=== PATIENT | male | born 1955 | race Caucasian/White ===

== ENCOUNTER 2017-05-26 07:10 | Outpatient (CLI) | payer BC | END 2017-05-26 07:11 | disposition home or self-care (01) | LOC: BICULT 07:10 | PROVIDERS: ATTEND Family Medicine | DX: G45.9 Transient cerebral ischemic attack, unspecified (principal); I65.21 Occlusion and stenosis of right carotid artery | CPT/HCPCS: 93880 ==

== ENCOUNTER 2019-08-09 11:52 | Outpatient (CLI) | payer BC ==
--- NOTE | 2019-08-09 13:03 | ULT ---
EXAM: Carotid Doppler PROVIDED CLINICAL HISTORY: Carotid artery disease COMPARISON: 06/25/2015 FINDINGS: Grayscale and color Doppler sonography with spectral analysis was performed of the extracranial carot id system bilaterally. Atherosclerotic plaque is seen within each carotid bulb/proximal ICA region, similar to prior. There is elevation of peak systolic velocity within the right internal carotid kati ry, measuring 145 cm/s, without elevation of the ICA/CCA ratio. There is no additional evidence for a hemodynamically significant internal carotid artery stenosis by peak systolic velocity or ratio cri teria. Antegrade flow is seen in the vertebral arteries. IMPRESSION: Nonspecific elevation of peak systolic velocity within the right internal carotid artery, which could reflect a moderate, 50-69% stenosis.
== END 2019-08-09 11:53 | disposition home or self-care (01) ==
LOC: BICULT 11:52
PROVIDERS: ATTEND Family Medicine
DX: I77.9 Disorder of arteries and arterioles, unspecified (principal); R93.1 Abnormal findings on diagnostic imaging of heart and coronary circulation
CPT/HCPCS: 93880

== ENCOUNTER 2020-06-28 23:07 | Inpatient (IN) | payer MEDICARE ==
[2020-06-29] MEDS ORDERED: Acetaminophen 325 MG TAB PO PRN (01:45)
[2020-06-29] MEDS ORDERED: Acetaminophen 650 MG Suppository PR PRN (01:45)
[2020-06-29] MEDS ORDERED: Nitroglycerin 0.4 MG TAB (25 Tab Bottle) SL PRN (01:55)
--- NOTE | 2020-06-29 02:08 | PDOC.HHP ---
Hospitalist HPI - History of Present Illness History of Present Illness: ADMISSION DATE: 06/29/2020 TIME OF ASSESSMENT: 0100 PRIMARY CARE PHYSICIAN: Dr. Do CHIEF COMPLAINT: Chest pain HPI: This is a 65-year-old gentleman who presents to the emergency department complaining of intermittent chest pain for the last 3 days. Not noted any association with activity and denies any associated shortness of breath. States the pain is in the left side of his chest and is nonradiating. He reports that the pain has been as severe as a 7 out of 10 but only lasts approximately 30 seconds at a time. He opted to come into the emergency department due to increasing frequency with the pain. He reports a chronic cough that is nonproductive. No recent fevers, chills or sweats. Denies any associated diaphoresis, palpitations, or shortness of breath. Denies any nausea or vomiting. No abdominal pain or cramping. No bowel changes or urinary symptoms. All other review systems are negative. ED COURSE: Initially seen at [facility]. EKG done in the emergency department showed T wave inversion involving the inferior leads. White cell count 9.7, hemoglobin 16.2, hematocrit 45, platelets 200, neutrophils 40.2%. D-dimer 0.46, repeat was 0.36. Sodium 140, potassium 4, BUN 24, creatinine 0.91, GFR 84, glucose 110, LFTs normal. Troponin negative x2. CK-MB 2.6 and CK normal. Chest x-ray: No acute changes. He was given nitroglycerin and 324 mg of aspirin. PAST MEDICAL HISTORY: 1. History of CVA 2. Peripheral vascular disease 3. Chronic tobacco use 4. Hypertension 5. BPH 6. Diabetes mellitus PAST SURGICAL HISTORY: 1. Stents placed to the right and left femoral arteries 2. Left femoral endarterectomy SOCIAL HISTORY: Patient smokes 1/2 to 3/4 pack of cigarettes a day. Denies daily alcohol consumption and states he is drinks 4 beers a week. Denies any illicit drug use. No history of alcohol withdrawal symptoms. FAMILY HISTORY: Mother was diagnosed with diabetes as well as his siblings. Siblings diagnosed with hypertension and heart disease. ALLERGIES: No known drug allergies CURRENT MEDICATIONS: 1. Aspirin 81 mg p.o. daily 2. Plavix 75 mg p.o. daily 3. Ramipril 10 mg p.o. twice daily VS: Temp 98.1, BP 164/81, HR 58, RR 18, O2 sat 97% on room air. - Exam General Appearance: NAD, awake alert Eye: PERRL, anicteric sclera ENT: normocephalic atraumatic, no oropharyngeal lesions Neck: supple, no lymphadenopathy Heart: RRR, no gallops, no rubs, normal peripheral pulses Respiratory: CTAB, no wheezes, no rales, no ronchi, normal chest expansion Gastrointestinal: soft, non-tender, non-distended, normal bowel sounds Extremities: no edema Skin: normal turgor, no lesions, no rashes Neurological: cranial nerve grossly intact, normal sensation to touch, no weakness Musculoskeletal: normal tone, normal strength, no muscle wasting Psychiatric: normal affect, normal behavior, A&O x 3 Hospitalist Results - Labs Lab results: D-Dimer 0.36 *mcg/mL (0.27-0.43) 06/28/20 23:56 Troponin I 0.012 ng/mL (< 0.028) 06/28/20 23:56 - Radiology Interpretation Chest x-ray Status: report reviewed by ut Hospitalist H&P A/P - Problem (1) Chest pain Code(s): R07.9 - CHEST PAIN, UNSPECIFIED Status: Acute (2) Diabetes Code(s): E11.9 - TYPE 2 DIABETES MELLITUS WITHOUT COMPLICATIONS Status: Chronic Qualifiers: Diabetes mellitus type: type 2 Diabetes mellitus complication status: with circulatory complication Diabetes mellitus complication detail: with peripheral angiopathy without gangrene Qualified Code(s): E11.51 - Type 2 diabetes mellitus with diabetic peripheral angiopathy without gangrene (3) Dyslipidemia Code(s): E78.5 - HYPERLIPIDEMIA, UNSPECIFIED Status: Chronic (4) Hypertension Code(s): I10 - ESSENTIAL (PRIMARY) HYPERTENSION Status: Chronic Qualifiers: Hypertension type: essential hypertension Qualified Code(s): I10 - Essential (primary) hypertension (5) PVD (peripheral vascular disease) Code(s): I73.9 - PERIPHERAL VASCULAR DISEASE, UNSPECIFIED Status: Chronic (6) Tobacco abuse Code(s): Z72.0 - TOBACCO USE Status: Chronic (7) History of CVA (cerebrovascular accident) Code(s): Z86.73 - PRSNL HX OF TIA (TIA), AND CEREB INFRC W/O RESID DEFICITS Status: Chronic - Plan Plan: Continue cardiac monitoring Continue to trend troponins Stress, pending COVID screening Lipid panel with AM labs Check TSH and Mg+ Continue ASA NPO Monitor BP ISS initiated Monitor glucose (Accu-cheks ACHS) Resume home medications once verified CODE STATUS FULL GI Prophylaxis: Famotidine. Case discussed with Dr. Cleveland.
[2020-06-29] MEDS ORDERED: Dextrose 50% Abboject 50 ML SYRINGE SLOW IVP PRN (02:14)
[2020-06-29] MEDS ORDERED: Dextrose 5% in Water 1,000 ML IV PRN (02:14)
[2020-06-29] MEDS ORDERED: HumaLOG 300 UNITS/3 ML VIAL SC PRN ×2 (02:14)
[2020-06-29] MEDS ORDERED: Aspirin 325 MG TAB PO SCH (02:15)
[2020-06-29 04:50] LABS: #Basophils 0.1 thou/uL (0.0-0.2); #Eosinphils 0.6 thou/uL (0.0-0.7); #Monocytes 0.8 thou/uL (0.11-0.59); #Neutrophils 4.4 thou/uL (1.40-6.50); %Basophils 1.5 % (0.0-1.0); %Eosinophils 5.7 % (0.0-10.0); %Lymphocytes 40.2 % (21.0-51.0); %Neutrophils 44.6 % (42.0-75.0); Hemoglobin 15.3 g/dL (14.0-18.0); Mean Corpuscular HGB CONC 35.5 g/dL (32.0-36.0); Mean Corpuscular Hemoglobin 32.9 pg (27.0-31.0); Mean Corpuscular Volume 92.8 fL (78.0-98.0); Mean Platelet Volume 9.1 fL (7.4-10.4); Platelet Count 194 thou/uL (130-400); RBC Distribution Width 11.1 % (11.5-14.5); Red Blood Cell (RBC) Count 4.66 mill/uL (4.70-6.10); White Blood Cell (WBC) Count 9.8 thou/uL (4.8-10.8)
[2020-06-29 05:12] LABS: Anion Gap 14 mmol/L (10-20); BUN (Urea Nitrogen) 24 mg/dL (8.4-25.7); Calc. Creatinine Clearance 0 mL/min (70-130); Calcium 8.6 mg/dL (7.8-10.44); Carbon Dioxide 24 mmol/L (23-31); Cardiac Risk 7.7 (Less than 4.5); Chloride 105 mmol/L (98-107); Cholesterol 216 mg/dl (< 200 Desired); Glucose 122 mg/dL (80-115); HDL Cholesterol 28 mg/dL (>60 Neg Risk); LDL Cholesterol, Calculated 108 mg/dL; Potassium 3.7 mmol/L (3.5-5.1); Sodium 139 mmol/L (136-145); Triglycerides 399 mg/dL (Less than 150)
[2020-06-29 05:16] LABS: Troponin I Less than 0.010 ng/mL (< 0.028)
[2020-06-29 06:21] LABS: SARS-CoV-2 PCR by NAA Not Detected (NotDetected)
[2020-06-29] MEDS ORDERED: Aspirin 325 MG TAB ONE (08:39)
[2020-06-29] MEDS ORDERED: Famotidine 20 MG TAB ONE (08:39)
[2020-06-29] MEDS ORDERED: ADENOSINE 60 MG/20 ML VIAL ONE (10:20)
--- NOTE | 2020-06-29 17:20 | NM ---
EXAM: CARDIAC SPECT HISTORY: Chest pain, hypertension, dyslipidemia, diabetes type 2, smoker, peripheral vascular disease TECHNIQUE: A myocardial perfusion scan was performed using the single isotope 1 day protocol with camilla hnetium 99m sestamibi. [10 mCi] was injected intravenously for the rest exam followed by 30 mCi for the stress study. Pharmacologic stress with adenosine was monitored and interpreted by Dr. Christianson FINDINGS: Homogeneous tracer distribution is seen in the myocardial segments on stress and rest image s without fixed or reversible defects. Gated SPECT LVEF: 53% Wall motion exam: Normal IMPRESSION: Normal myocardial perfusion scan
[2020-06-29 17:38] VITALS: BMI 29.5
--- NOTE | 2020-06-29 17:40 | PDOC.DS.DS ---
Provider - Provider Date of Admission: 06/29/20 01:00 Date of Discharge: 06/29/20 Admitting Provider: Rafael Cleveland MD Primary Care Physician: Naresh Do MD Course - Hospital Course Hospital Course: Discharge Diagnoses: 1.Chest pain Brief HPI: This is a 65 year old male with past medical history of tobacco abuse, CVA, hypertension and diabetes who presented to the ER with chest pain. The patient reported chest pain for three days intermittently, lasting 30 seconds or less. He states that sometimes he would get the pain on exertion as well as shortness of breath on exertion, but it could occur at rest or spontaneously as well. He smokes 1/2 pack of cigarettes a day. EKG showed bifascicular block. The patient was admitted for further workup. Hospital Course: Chest pain: the patient had three sets of troponins which were normal. Nuclear stress test was normal. The patient was advised to consider pepcid on discharge and continue his home aspirin and plavix and to stop smoking. Hyperlipidemia: total cholesterol is 216 with triglyceride of 399. I will discharge him on atorvastatin 20 mg daily. Pertinent Studies: Stress test: normal myocardial perfusion scan Resuscitation Status: 06/29/20 01:45 Resuscitation Status Routine Co-Sign Provider: Resuscitation Status: FULL: Full Resuscitation - Labs Lab Results: 06/29/20 04:39 06/29/20 04:39 Abnormal Lab Results - Last 48 hrs 06/29/20 04:39: Triglycerides 399 H, Cholesterol 216 H 06/29/20 04:39: RBC 4.66 L, MCH 32.9 H, RDW 11.1 L, Basophils % 1.5 H, Lymphocytes # 4.0 H, Monocytes # 0.8 H - Physical Exam Vitals: Vital Signs (12 hours) Pulse Resp 06/29/20 15:09 84 16 Weight Weight 200 lb Physical Exam: The patient was seen and examined on the day of discharge. General: patient is alert, awake, oriented times three CV: RRR, no murmurs, rubs, gallops Lungs: CTAB Abdomen: +BS, soft, nontender, nondistended Extremities: no edema Plan - Discharge Medications Home Medications: Medication Instructions Recorded Confirmed Type Clopidogrel Bisulfate [Plavix] 75 mg PO DAILY 06/25/15 06/29/20 History Aspirin [Ecotrin Low Strength] 81 mg PO DAILY #0 tab 06/26/15 06/29/20 Rx Acetaminophen W/ Codeine [Tylenol 1 - 2 tab PO Q6HR PRN #10 tab 06/24/20 06/29/20 Rx #3] Carvedilol [Coreg] 25 mg PO BID 06/29/20 06/29/20 History Insulin NPH Hum/Reg Insulin HM 35 - 60 unit SQ ASDIR 06/29/20 06/29/20 History [Novolin 70-30 100 Unit/ml Vial] Ramipril 10 mg PO BID 06/29/20 06/29/20 History Sertraline HCl 50 mg PO DAILY 06/29/20 06/29/20 History Allergies: Ygvyomv-Soh-Cwa Reductase Inhibitor Allergy (Verified 06/29/20 15:36) - Discharge Instructions Activity:: Activity as Tolerated Nourishment:: Heart Healthy Diet - Follow up Plan Referrals: Naresh Do MD [Primary Care Provider] - Disposition: HOME
[2020-06-29] MEDS: Famotidine 20 MG TAB PO SCH ×2 (17:57→20:42)
[2020-06-29] MEDS: Aspirin 325 mg Enteric Coated Tablet PO SCH (17:57)
--- NOTE | 2020-06-29 18:01 | PDOC.BPN ---
- Brief Progress Note Encounter Date: 06/29/20 Encounter Time: 16:00 F/u : chest pain The patient denies chest pain currently. He states when he first stands up for a few seconds, occasionally at rest and reports some heaviness and shortness of breath while walking. Stress test is normal Patient states he has a stent in his leg that is plugged up and needs that fixed. He states nobody has checked his heart before General: patient is alert, awake, oriented times three CV: RRR, no murmurs ,rubs, gallops Lungs: CTAB Abdomen: +BS, soft, nontender, nondistended Extremities: jovany angela This is a 65 year old male with history of PVD, stroke, tobacco abuse, hypertension who presents with chest pain #Chest pain #Bifascicular block #Peripheral vascular disease with history of stent #History of CVA - troponins are normal. Nuclear stress test normal. Discussed with Dr. Christianson who advised cardiology consultation tomorrow, may need a cath - continue aspirin and plavix - triglycerides are high and cholesterol is high. Patient states he does not tolerate statins. Will try zetia . Monitor LFTS #Tobacco abuse - advised on cessation
[2020-06-29] MEDS ORDERED: Carvedilol 25 MG TAB PO SCH (18:30)
[2020-06-29] MEDS: Ramipril 5 MG CAP PO SCH (20:42)
[2020-06-30] MEDS: Aspirin 325 mg Enteric Coated Tablet PO SCH (08:44)
[2020-06-30] MEDS: Ramipril 5 MG CAP PO SCH ×2 (08:44→21:49)
[2020-06-30] MEDS: Famotidine 20 MG TAB PO SCH ×2 (08:44→21:50)
[2020-06-30] MEDS: Carvedilol 25 MG TAB PO SCH ×2 (08:45→17:58)
[2020-06-30] MEDS ORDERED: Clopidogrel Bisulfate 75 MG TAB PO SCH (09:00)
[2020-06-30] MEDS ORDERED: Insulin Glargine 20 UNITS in Pre-Filled Syringe 1 EACH SC SCH (09:00)
[2020-06-30] MEDS ORDERED: Iopamidol 370 76% 50 ML VIAL FS ONE (09:28)
[2020-06-30] MEDS ORDERED: Iopamidol 370 76% 100 ML VIAL ONE (09:28)
[2020-06-30] MEDS ORDERED: Communication Order-Pharmacy FS SCH (10:45)
--- NOTE | 2020-06-30 11:45 | CON ---
DATE OF CONSULTATION: 06/30/2020 INDICATION FOR CONSULTATION: A 65-year-old patient with a history of peripheral vascular disease, diabetes, tobacco abuse, and hypertension, who was admitted with chest pain. Enzymes were negative. EKG shows right bundle-branch block with no acute changes. He underwent stress testing, which showed no evidence of ischemia; however, the patient continues to have some episodes of chest discomfort, which he describes as being heavy, sometimes tightness that lasts for a few minutes and then go away without any particular activity. Given his multiple risk factors of coronary artery disease, he may have underlying 3-vessel coronary artery disease that was not picked up by the stress test. He will be advised to undergo cardiac catheterization. I have explained the procedure and the risks to him to include bleeding, infection, possible myocardial infarction, CVA, renal insufficiency, allergic contrast reaction, the possibility of , he understands and agrees to proceed. We will plan for cardiac catheterization later today. PAST MEDICAL HISTORY: Significant for peripheral vascular disease. He has undergone angioplasty and stent placement to bilateral superficial femoral arteries. He last had some procedure done a few months ago to the left leg. He has had been distended and occluded and he apparently underwent repeat stenting or angioplasty, uncertain exactly what was performed. His right leg now was worse in the left leg. He has also undergone stents. He said that he has had the stents placed about 6 or 7 years ago. He has also had a CVA in the past. He has history of hypertension, benign prostatic hypertrophy. He has history of diabetes. He has had a right foot fracture about a week ago and he says he is still walking in a boot. SOCIAL HISTORY: He is . He has children who are alive and well without heart disease. He stops smoking he said about yesterday. He has smoked in the past up to 40 years up to 2 packs a day. He continues to smoke half a pack a day until admission. Alcohol is rare. FAMILY HISTORY: Father had myocardial infarction at age 65. He has a brother who had also had coronary artery disease and some type of aneurysm. ALLERGIES: NONE. MEDICATIONS: Include: 1. Insulin. 2. Aspirin. 3. Coreg. 4. Plavix. 5. Pepcid. 6. Altace. 7. Nitroglycerin p.r.n. REVIEW OF SYSTEMS: He wears glasses. He complains of shortness of breath, dyspnea on exertion, and claudication. Otherwise, a 12-point review of systems is unremarkable. PHYSICAL EXAMINATION: GENERAL: Reveals a well-developed, well-nourished gentleman, who is in no acute distress at this time. VITAL SIGNS: Blood pressure is 125/60, earlier was 161/72; heart rate is 60 to 67 and regular; he is afebrile; and respiratory rate is about 14. HEENT: Shows the head to be normocephalic and atraumatic. I did not hear any significant bruits. CHEST: His chest was clear to auscultation without rales, rhonchi, or wheezing. CARDIOVASCULAR: Reveals a regular rate and rhythm with normal S1, S2. I cannot hear an S3 nor an S4. No other any significant murmurs, heaves, thrills, bruits, or rubs. ABDOMEN: Soft and nontender. Positive bowel sounds are present. EXTREMITIES: Show no clubbing or cyanosis. I could not palpate popliteal or pedal pulses. He does have palpable femoral pulses with bilateral femoral bruits. NEUROLOGICALLY: There is no gross focal motor deficits that I could elicit at this time. IMAGING: EKG shows normal sinus rhythm with a right bundle-branch block. LABORATORY DATA: Show a sodium of 139, potassium was 3.7, chloride was 105, bicarb was 24, BUN was 24, creatinine 0.95, blood sugar was 348, LDL was 108 with HDL of 28. Troponin I is negative x3. Total cholesterol was 216. His hemoglobin is 15.3, WBC of 9.8, and platelet count was 194,000. IMPRESSION: 1. A 65-year-old gentleman with significant risk factors of coronary artery disease, which includes hypertension, dyslipidemia, diabetes, and smoking history. He will be advised to undergo cardiac catheterization to evaluate for coronary artery disease. He has multiple risk factors and continues to have chest pain. He may have 3- vessel disease. 2. History of peripheral vascular disease. He has been followed by another physician in [place] for his peripheral vascular disease and would suggest he continue his followup with them. 3. History of cerebrovascular accident in the past. He says he had a carotid ultrasound and many years ago, was told he had some blockage; however, he had a recent carotid ultrasound performed and they said there was no blockage noted. He may need to undergo further evaluation, but he has no recent complaints from a CVA standpoint. 4. Diabetes, which is under very poor control at this time. The medications will need to be adjusted. We will leave this up to the primary care service. 5. History of tobacco abuse. He absolutely must stop smoking. We will be more than happy to continue to follow the patient with you. Further recommendations will depend on the results of the cardiac catheterization, which will be performed later today. Job ID: [id number] MTDD
[2020-06-30] MEDS ORDERED: Verapamil 5 MG/2 ML VIAL ONE (14:13)
[2020-06-30] MEDS ORDERED: Heparin 10,000 UNITS/ 10 ML VIAL ONE (14:13)
[2020-06-30] MEDS ORDERED: Nitroglycerin 100MG/250ML BOT 250 ML ONE (14:14)
[2020-06-30] MEDS ORDERED: Midazolam HCl 2 mg/2 ml Vial ONE (14:46)
[2020-06-30] MEDS ORDERED: hydrALAZINE 20 MG/ML VIAL ONE ×2 (14:56→15:11)
[2020-06-30] MEDS ORDERED: Nitroglycerin 0.4 MG TAB (25 Tab Bottle) SL PRN (15:52)
[2020-06-30] MEDS ORDERED: Sodium Chloride 0.9% 200 ML IV PRN (15:52)
[2020-06-30] MEDS ORDERED: Acetaminophen/Codeine 30-300mg Tablet PO PRN ×2 (15:52)
--- NOTE | 2020-06-30 16:05 | PDOC.HOSPP ---
- Subjective Encounter Date: 06/30/20 Encounter Time: 09:00 Subjective: F/u: chest pain THe patient has no complaints of chest pain today. He is awaiting his cardiac cath - Objective Vital Signs & Weight: Vital Signs (12 hours) Temp Pulse Resp BP BP BP Pulse Ox 06/30/20 15:42 97.9 F 70 15 152/67 H 94 L 06/30/20 11:30 97.4 F L 60 15 174/79 H 96 06/30/20 08:44 161/72 H 06/30/20 07:18 97.6 F 67 16 161/72 H 96 Weight Weight 200 lb I&O: 06/29/20 06/30/20 07/01/20 06:59 06:59 06:59 Intake Total 1000 240 Output Total 1150 Balance -150 240 Result Diagrams: 06/29/20 04:39 06/29/20 04:39 Additional Labs: Accuchecks 06/30/20 06/30/20 06/29/20 10:42 05:54 20:29 POC Glucose 321 H 348 H 403 H Hospitalist ROS - Review of Systems Constitutional: denies: fever, chills - Medication Medications: Active Medications Generic Name Dose Route Start Last Admin Trade Name Freq PRN Reason Stop Dose Admin Aspirin 325 mg 06/29/20 09:00 06/30/20 08:44 Aspirin 325 Mg Enteric Coated Tablet PO 325 mg DAILY JOSE Administration Carvedilol 25 mg 06/30/20 08:00 06/30/20 08:45 Carvedilol 25 Mg Tab PO 25 mg BID- JOSE Administration Clopidogrel Bisulfate 75 mg 06/30/20 09:00 06/30/20 08:44 Clopidogrel Bisulfate 75 Mg Tab PO 75 mg DAILY JOSE Administration Famotidine 20 mg 06/29/20 09:00 06/30/20 08:44 Famotidine 20 Mg Tab PO 20 mg BID JOSE Administration Ramipril 10 mg 06/29/20 21:00 06/30/20 08:44 Ramipril 5 Mg Cap PO 10 mg BID JOSE Administration Sertraline HCl 50 mg 06/30/20 09:00 06/30/20 08:53 Sertraline Hcl 100 Mg Tab PO 50 mg DAILY JOSE Administration - Exam General Appearance: NAD, awake alert Eye: PERRL, anicteric sclera ENT: normocephalic atraumatic, no oropharyngeal lesions Neck: no JVD Heart: RRR, no murmur, no gallops, no rubs Respiratory: CTAB, no wheezes, no rales, no ronchi Gastrointestinal: soft, non-tender, non-distended, normal bowel sounds Extremities: no cyanosis, no clubbing, no edema Skin: normal turgor, no lesions, no rashes Neurological: cranial nerve grossly intact, normal sensation to touch, no weakness Hosp A/P - Plan Cardiac cath: EF 60-65%. Proximal LAD 75%, mid 70%. Ramus intermediate 75%. Left circumflex 30%, RCA proximal 30% This is a 65 year old male with history of PVD, stroke, tobacco abuse, hypertension who presents with chest pain. He had a negative stress test. Cardiac cath showed 3 vessel disease Chest pain likely secondary to 3 vessel CAD #Bifascicular block -troponins were negative x 3. Nuclear stress test normal. Cardiac cath showed 70% lesion mid LAD and proximal LAD 75%. He also has 30% lesion RCA and left circumflex. CV has been consulted. Awaiting recommendations - will change to inpatient status - continue aspirin and statin #Peripheral vascular disease with history of stent #History of CVA - continue aspirin and plavix - triglycerides are high and cholesterol is high. Patient states he does not tolerate statins. Will try zetia . Monitor LFTS #Type II Diabetes - takes anywhere from 30-65 units of insulin at home. Started lantus 20 units SC qam and will readjust. Continue sliding scale #Tobacco abuse - advised on cessation
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
[2020-06-30] MEDS ORDERED: Ezetimibe 10 MG TAB PO SCH (21:00)
[2020-06-30] MEDS ORDERED: HumaLOG 300 UNITS/3 ML VIAL SC PRN (22:20)
[2020-07-01 04:47] LABS: Hemoglobin A1c 8.7 % (4.0-6.0)
[2020-07-01] MEDS ORDERED: Clopidogrel Bisulfate 75 MG TAB PO SCH (09:00)
[2020-07-01] MEDS ORDERED: Dextrose 5% in Water 1,000 ML IV PRN (09:39)
[2020-07-01] MEDS ORDERED: Dextrose 50% Abboject 50 ML SYRINGE SLOW IVP PRN (09:39)
[2020-07-01] MEDS ORDERED: HumaLOG 300 UNITS/3 ML VIAL SC PRN (09:39)
[2020-07-01] MEDS ORDERED: Insulin Glargine 20 UNITS in Pre-Filled Syringe 1 EACH SC SCH (09:45)
[2020-07-01] MEDS: Aspirin 325 mg Enteric Coated Tablet PO SCH (09:48)
[2020-07-01] MEDS: Famotidine 20 MG TAB PO SCH (09:48)
[2020-07-01] MEDS: Carvedilol 25 MG TAB PO SCH ×2 (09:48→16:53)
[2020-07-01] MEDS: Ramipril 5 MG CAP PO SCH (09:48)
[2020-07-01 12:13] VITALS: BP 176/73; TEMP 97.8
--- NOTE | 2020-07-01 17:25 | PDOC.DS.DS ---
Provider - Provider Date of Admission: 06/30/20 16:09 Date of Discharge: 07/01/20 Admitting Provider: Rafael Cleveland MD Consultations: Cardiology, Other (Cardiothoracic surgery Dr. Abrams) Primary Care Physician: Naresh Do MD Course - Hospital Course Hospital Course: Discharge Diagnoses: 1. Chest pain secondary to angina with 3 vessel CAD 2. Type II Diabetes 3. Hypertension - uncontrolled 4. Peripheral vascular disease with history of stents in his leg Brief HPI: This is a 65 year old male with past medical history of tobacco abuse, CVA, hypertension and diabetes who presented to the ER with chest pain. The patient reported chest pain for three days intermittently, lasting 30 seconds or less. He states that sometimes he would get the pain on exertion as well as shortness of breath on exertion, but it could occur at rest or spontaneously as well. He smokes 1/2 pack of cigarettes a day. EKG showed bifascicular block. The patient was admitted for further workup. Hospital Course: Chest pain secondary to angina from 3 vessel CAD: the patient had three sets of troponins which were normal. Nuclear stress test was unremarkable. However, due to his risk factors, cardiology was consulted and cardiac cath was done which showed 70% lesion mid LAD and proximal LAD 75%. He also has 30% lesion RCA and left circumflex. Cardiovascular surgery was consulted who recommended discharge and to readmit the patient electively for surgery after he is off plavix for one week. He should follow up with Dr. Leal in a week Hyperlipidemia: total cholesterol is 216 with triglyceride of 399. The patient does not tolerate statins. He was discharged on zetia and fenofibrate. He should have this followed up as an outpatient. Type II Diabetes; The patient takes 55 units of insulin twice daily. He was advised to follow up with his PCP and have adequate control of his diabetes kelsie or to surgery ideally. [facility] hospital with further workup Tobacco abuse: the patient stated he would quit smoking on discharge and refused nicotine patches. Pertinent Studies: Cardiac cath: EF 60-65%. Proximal LAD 75%, mid 70%. Ramus intermediate 75%. Left circumflex 30%, RCA proximal 30% Resuscitation Status: 06/29/20 01:45 Resuscitation Status Routine Co-Sign Provider: Resuscitation Status: FULL: Full Resuscitation - Labs Lab Results: 06/29/20 04:39 06/29/20 04:39 Abnormal Lab Results - Last 48 hrs 07/01/20 04:01: Hemoglobin A1c 8.7 H - Physical Exam Vitals: Vital Signs (12 hours) Temp Pulse Resp BP BP Pulse Ox 07/01/20 12:13 97.8 F 64 15 176/73 H 94 L 07/01/20 09:48 160/68 H 07/01/20 07:20 98.6 F 63 15 188/79 H 94 L Weight Weight 186 lb Physical Exam: The patient was seen and examined on the day of discharge. General: patient is alert, awake, oriented times three CVS: RRR, no murmurs, rubs or gallops Lungs: CTAB Abdomen: +BS, soft, nontender, nondistended Extremities: no edema Groin: no hematoma evident Problem - Discharge Plan Plan of Treatment: FOCUS: Transition from Acute Care after Discharge GOAL: Successful transition to care in the community YOUR TASKS: (1) review all information outlined in your discharge packet (2) follow any instructions outlined in your discharge packet (3) contact your primary care provider if you have questions or need additional assistance See patient discharge instruction sheet for detailed teaching. Patient verbalizes understanding of medications and is able to verbalize follow-up care. See Discharge Plan for additional discharge information. Patient secured in private vehicle prior to departure. - Time spent with Patient (mins): 35 Plan - Discharge Medications Prescriptions: Aspirin [Adult Aspirin Regimen] 81 mg PO DAILY #30 tablet. Isosorbide Mononitrate [Imdur] 60 mg PO DAILY #30 tab Nitroglycerin 0.4 mg SL Q5M PRN #30 tab.subl PRN Reason: Pain Clopidogrel Bisulfate [Plavix] 75 mg PO DAILY #30 tab Fenofibrate Nanocrystallized [Tricor] 145 mg PO 1730 #30 tab Lisinopril [Zestril] 10 mg PO DAILY #30 tab Ezetimibe [Zetia] 10 mg PO QPM #30 tab Home Medications: Medication Instructions Recorded Confirmed Type Clopidogrel Bisulfate [Plavix] 75 mg PO DAILY 06/25/15 06/29/20 History Aspirin [Ecotrin Low Strength] 81 mg PO DAILY #0 tab 06/26/15 06/29/20 Rx Acetaminophen W/ Codeine 1 - 2 tab PO Q6HR PRN #10 tab 06/24/20 06/29/20 Rx [Acetaminophen/Codeine #3] Carvedilol [Coreg] 25 mg PO BID 06/29/20 06/29/20 History Insulin NPH Hum/Reg Insulin HM 35 - 60 unit SQ ASDIR 06/29/20 06/29/20 History [Novolin 70-30 100 Unit/ml Vial] Ramipril 10 mg PO BID 06/29/20 06/29/20 History Sertraline HCl 50 mg PO DAILY 06/29/20 06/29/20 History Aspirin [Adult Aspirin Regimen] 81 mg PO DAILY #30 tablet.dr 07/01/20 Rx Clopidogrel Bisulfate [Plavix] 75 mg PO DAILY #30 tab 07/01/20 Rx Ezetimibe [Zetia] 10 mg PO QPM #30 tab 07/01/20 Rx Fenofibrate Nanocrystallized 145 mg PO 1730 #30 tab 07/01/20 Rx [Tricor] Isosorbide Mononitrate [Imdur] 60 mg PO DAILY #30 tab 07/01/20 Rx Lisinopril [Zestril] 10 mg PO DAILY #30 tab 07/01/20 Rx Nitroglycerin 0.4 mg SL Q5M PRN #30 tab.subl 07/01/20 Rx Allergies: Rkcavjb-Rpq-Yeh Reductase Inhibitor Allergy (Verified 06/29/20 15:36) - Discharge Instructions Activity:: Activity as Tolerated Nourishment:: Heart Healthy Diet - Follow up Plan Referrals: Naresh Do MD [Primary Care Provider] - 7 Days (Follow up your PCP in 7 days ) Everton Abrams MD [Active] - (As per the discusssion you had with Dr. abrams, he will call you when the beds are available for surgery. Bu if you have any questions or cponcerns you can reach him @ [phone]. ) Disposition: HOME Quality - Care Measures CORE MEASURES:: N/A
[2020-07-01] MEDS ORDERED: Fenofibrate Nanocrystallized 145 MG TAB PO SCH (17:30)
[2020-07-01] MEDS ORDERED: Atorvastatin Calcium 10 MG TAB PO SCH (21:00)
[2020-07-02] MEDS ORDERED: Lisinopril 10 MG TAB PO SCH (09:00)
== END 2020-07-01 18:00 | disposition home or self-care (01) | DRG 287 ==
LOC: ERS 23:07 → ERHOLD 06-29 01:00 → 2NO 06-29 13:21 → OBSVTOIN 06-30 16:09
PROVIDERS: ADMIT Student in an Organized Health Care Education/Training Program; ATTEND Internal Medicine
PROC: 4A023N7 Measurement of Cardiac Sampling and Pressure, Left Heart, Percutaneous Approach (ICD-10-PCS; principal; 2020-06-30)
PROC: B2151ZZ Fluoroscopy of Left Heart using Low Osmolar Contrast (ICD-10-PCS; 2020-06-30)
PROC: B2111ZZ Fluoroscopy of Multiple Coronary Arteries using Low Osmolar Contrast (ICD-10-PCS; 2020-06-30)
DX: I25.110 Atherosclerotic heart disease of native coronary artery with unstable angina pectoris (principal); I45.2 Bifascicular block; F17.210 Nicotine dependence, cigarettes, uncomplicated; I10 Essential (primary) hypertension; E78.5 Hyperlipidemia, unspecified; Z20.822 Contact with and (suspected) exposure to COVID-19; E11.51 Type 2 diabetes mellitus with diabetic peripheral angiopathy without gangrene; N40.0 Benign prostatic hyperplasia without lower urinary tract symptoms; Z86.73 Personal history of transient ischemic attack (TIA), and cerebral infarction without residual deficits; Z88.8 Allergy status to other drugs, medicaments and biological substances; Z79.01 Long term (current) use of anticoagulants; Z79.82 Long term (current) use of aspirin; Z79.899 Other long term (current) drug therapy; Z79.84 Long term (current) use of oral hypoglycemic drugs; Z98.890 Other specified postprocedural states
CPT/HCPCS: 36415; 36416; 78452; 80048; 80061; 83036; 83735; 84443; 84484; 85025; 85379; 87635; 93017; 93458; 94760; 99152; 99153; 99285; A9500; G0378; J0153; J0360; J1644; J1815; J2250; Q9967; U0003; U0005

== ENCOUNTER 2022-06-23 14:19 | Inpatient (IN) | payer MEDICARE ==
[~2022-06-23 14:19] MED LIST: Iopamidol-370 76% 500 ML 1 ML ONE
[2022-06-23] MEDS ORDERED: niCARdipine 25 MG/10 ML VIAL ONE (14:37)
[2022-06-23 14:59] LABS: #Eosinphils 0.2 thou/uL (0.0-0.7); #Lymphocytes 2.4 thou/uL (1.20-3.40); #Monocytes 0.7 thou/uL (0.11-0.59); #Neutrophils 6.7 thou/uL (1.40-6.50); %Basophils 0.4 % (0.0-1.0); %Eosinophils 1.8 % (0.0-10.0); %Lymphocytes 23.7 % (21.0-51.0); %Monocytes 7.1 % (0.0-10.0); %Neutrophils 67.1 % (42.0-75.0); Hemoglobin 15.3 g/dL (14.0-18.0); Mean Corpuscular HGB CONC 34.8 g/dL (32.0-36.0); Mean Corpuscular Hemoglobin 33.1 pg (27.0-31.0); Mean Corpuscular Volume 95.1 fl (78.0-98.0); Mean Platelet Volume 8.9 fL (7.4-10.4); Platelet Count 278 10x3/uL (130-400); RBC Distribution Width 11.3 % (11.5-14.5); Red Blood Cell (RBC) Count 4.62 mill/uL (4.70-6.10); White Blood Cell (WBC) Count 9.9 10x3/uL (4.8-10.8)
[2022-06-23 15:15] LABS: PTT 27.4 sec (22.9-36.1); Prothrombin Time 12.2 sec (12.0-14.7)
[2022-06-23 15:16] LABS: INR-International Normal Ratio 0.9
[2022-06-23 15:26] LABS: ALT (SGPT) 18 U/L (8-55); AST (SGOT) 21 U/L (5-34); Albumin 2.7 g/dL (3.4-4.8); Alkaline Phosphatase 52 U/L (40-110); Anion Gap 11 mmol/L (10-20); BUN (Urea Nitrogen) 18 mg/dL (8.4-25.7); Bilirubin, Total 0.2 mg/dL (0.2-1.2); CK (CPK) 120 U/L (30-200); Calc. Creatinine Clearance 0 mL/min (70-130); Calcium 8.5 mg/dL (7.8-10.44); Carbon Dioxide 25 mmol/L (23-31); Chloride 105 mmol/L (98-107); Estimated GFR 38; Globulin 2.1 g/dL (2.4-3.5); Glucose 244 mg/dL (80-115); Lipase 43 U/L (8-78); Magnesium 2.1 mg/dL (1.6-2.6); Potassium 4.5 mmol/L (3.5-5.1); Protein, Total 4.8 g/dL (5.8-8.1); Sodium 136 mmol/L (136-145)
[2022-06-23] MEDS ORDERED: hydrALAZINE 20 MG/ML VIAL ONE (15:53)
[2022-06-23] MEDS ORDERED: Morphine 4 MG/ML VIAL SLOW IVP PRN (16:04)
[2022-06-23] MEDS ORDERED: Dextrose 50% Abboject 50 ML SYRINGE SLOW IVP PRN (16:04)
[2022-06-23] MEDS ORDERED: Ipratropium/Albuterol 3 ML NEB NEB PRN (16:04)
[2022-06-23] MEDS ORDERED: Dextrose 5% in Water 1,000 ML IV PRN (16:04)
[2022-06-23] MEDS ORDERED: Acetaminophen 500 MG TAB PO PRN (16:08)
[2022-06-23] MEDS ORDERED: Sodium Chloride 0.9% 1,000 ML IV SCH (16:15)
[2022-06-23 16:53] LABS: Magnesium 2.1 mg/dL (1.6-2.6); Phosphorus 2.4 mg/dL (2.3-4.7)
[2022-06-23 17:13] LABS: Bacteria/HPF None Seen HPF (None Seen); Bilirubin Negative (Negative); Blood, Urine Trace (Negative); Clarity Clear (Clear); Glucose, Urine (Dipstick) Greater than 1000 mg/dL (Negative); Ketone, Urine Negative (Negative); Leukocyte Negative Leu/uL (Negative); Nitrite Negative (Negative); Protein, Urine (Dipstick) 300 mg/dL (Neg-Trace); RBC/HPF 0-3 HPF (0-3); Specific Gravity, Urine 1.023 (1.002-1.036); Squamous Epithelial None Seen HPF (0-3); Urobilinogen Normal mg/dL (Less than 2); WBC/HPF 0-3 HPF (0-3)
[2022-06-23 17:43] LABS: SARS-CoV-2 NAA Rapid Test Not Detected (NotDetected)
[2022-06-23 18:27] VITALS: BMI 30.4
[2022-06-23] MEDS: Ipratropium/Albuterol 3 ML NEB NEB SCH (18:49)
[2022-06-23] MEDS: Dextrose 5 % And 0.9 % NaCl 1,000 ML IV SCH (20:42)
[2022-06-23] MEDS ORDERED: Famotidine/PF 20 mg/2ml Vial SLOW IVP SCH (21:00)
[2022-06-23] MEDS: Senokot S 8.6-50 MG TAB PO SCH (21:40)
[2022-06-23] MEDS: hydrALAZINE 20 MG/ML VIAL SLOW IVP PRN (23:05)
[2022-06-24 03:45] LABS: #Basophils 0.1 thou/uL (0.0-0.2); #Eosinphils 0.3 thou/uL (0.0-0.7); #Lymphocytes 3.6 thou/uL (1.20-3.40); #Monocytes 1.1 thou/uL (0.11-0.59); #Neutrophils 6.3 thou/uL (1.40-6.50); %Basophils 0.6 % (0.0-1.0); %Eosinophils 2.6 % (0.0-10.0); %Lymphocytes 32.2 % (21.0-51.0); %Monocytes 9.3 % (0.0-10.0); %Neutrophils 55.3 % (42.0-75.0); Hemoglobin 14.2 g/dL (14.0-18.0); Mean Corpuscular HGB CONC 33.7 g/dL (32.0-36.0); Mean Corpuscular Hemoglobin 32.3 pg (27.0-31.0); Mean Corpuscular Volume 95.6 fl (78.0-98.0); Mean Platelet Volume 9.2 fL (7.4-10.4); Platelet Count 259 10x3/uL (130-400); RBC Distribution Width 11.4 % (11.5-14.5); White Blood Cell (WBC) Count 11.3 10x3/uL (4.8-10.8)
[2022-06-24] MEDS: hydrALAZINE 20 MG/ML VIAL SLOW IVP PRN ×2 (03:52→12:44)
[2022-06-24 04:06] LABS: Anion Gap 9 mmol/L (10-20); BUN (Urea Nitrogen) 17 mg/dL (8.4-25.7); Calc. Creatinine Clearance 52 mL/min (70-130); Calcium 8.1 mg/dL (7.8-10.44); Carbon Dioxide 21 mmol/L (23-31); Chloride 113 mmol/L (98-107); Estimated GFR 40; Glucose 78 mg/dL (80-115); Magnesium 2.1 mg/dL (1.6-2.6); Phosphorus 2.8 mg/dL (2.3-4.7); Potassium 3.7 mmol/L (3.5-5.1); Sodium 139 mmol/L (136-145)
[2022-06-24] MEDS: Dextrose 5 % And 0.9 % NaCl 1,000 ML IV SCH (05:44)
[2022-06-24] MEDS: Amlodipine 10 MG TAB PO SCH (05:44)
[2022-06-24] MEDS: Ipratropium/Albuterol 3 ML NEB NEB SCH ×3 (07:17→18:53)
[2022-06-24] MEDS ORDERED: PHOS-NAK 1 PKT PACK PO SCH (08:00)
[2022-06-24] MEDS: Fenofibrate Nanocrystallized 145 MG TAB PO SCH (08:51)
[2022-06-24] MEDS: Atenolol 50 MG TAB PO SCH (08:52)
[2022-06-24] MEDS: Senokot S 8.6-50 MG TAB PO SCH ×2 (08:53→20:53)
[2022-06-24] MEDS: Polyethylene Glycol 3350 17 GM Packet PO SCH (08:53)
[2022-06-24] MEDS: Ezetimibe 10 MG TAB PO SCH (08:53)
[2022-06-24] MEDS ORDERED: FLU VACC QS2022-23(65YR UP)/PF 240 MCG/0.7 ML SYRINGE IM ONE (09:00)
[2022-06-24] MEDS ORDERED: Famotidine 20 MG TAB PO SCH (09:00)
[2022-06-24] MEDS ORDERED: hydrALAZINE 10 MG TAB PO SCH (10:15)
[2022-06-24] MEDS ORDERED: Atropine Sulfate 1 mg/10 ml Syringe ONE (11:08)
[2022-06-24] MEDS ORDERED: DOPamine 400 MG/D5W 250 ML 0 ML ONE (11:11)
[2022-06-24] MEDS ORDERED: Atropine Sulfate 1 mg/10 ml Syringe IVP SCH (12:15)
[2022-06-24] MEDS: hydrALAZINE 25 MG TAB PO SCH ×2 (16:37→20:52)
[2022-06-24] MEDS: Ondansetron PF 4 MG/2 ML Vial IVP PRN (23:33)
[2022-06-25] MEDS ORDERED: Morphine 4 MG/ML VIAL SLOW IVP SCH (00:45)
[2022-06-25] MEDS ORDERED: DOPamine 400 MG/D5W 250 ML 250 ML ONE (00:57)
[2022-06-25] MEDS ORDERED: DOPamine 400 MG/D5W 250 ML 250 ML IVPB SCH (01:15)
[2022-06-25] MEDS: Ondansetron PF 4 MG/2 ML Vial IVP PRN (02:44)
[2022-06-25] MEDS ORDERED: Promethazine HCl 12.5 MG in Sodium Chloride 0.9% 50 ML IVPB SCH (03:00)
[2022-06-25 03:43] LABS: #Basophils 0.1 thou/uL (0.0-0.2); #Lymphocytes 2.4 thou/uL (1.20-3.40); #Monocytes 1.1 thou/uL (0.11-0.59); #Neutrophils 12.5 thou/uL (1.40-6.50); %Basophils 0.5 % (0.0-1.0); %Eosinophils 0.3 % (0.0-10.0); %Neutrophils 77.1 % (42.0-75.0); Hemoglobin 14.6 g/dL (14.0-18.0); Mean Corpuscular HGB CONC 33.4 g/dL (32.0-36.0); Mean Corpuscular Hemoglobin 32.5 pg (27.0-31.0); Mean Corpuscular Volume 97.2 fl (78.0-98.0); Mean Platelet Volume 9.7 fL (7.4-10.4); Platelet Count 279 10x3/uL (130-400); RBC Distribution Width 11.7 % (11.5-14.5); White Blood Cell (WBC) Count 16.2 10x3/uL (4.8-10.8)
[2022-06-25 04:28] LABS: Anion Gap 15 mmol/L (10-20); BUN (Urea Nitrogen) 27 mg/dL (8.4-25.7); Calc. Creatinine Clearance 34 mL/min (70-130); Calcium 8.2 mg/dL (7.8-10.44); Carbon Dioxide 19 mmol/L (23-31); Chloride 107 mmol/L (98-107); Estimated GFR 24; Glucose 269 mg/dL (80-115); Magnesium 2.2 mg/dL (1.6-2.6); Phosphorus 3.8 mg/dL (2.3-4.7); Potassium 4.7 mmol/L (3.5-5.1); Sodium 136 mmol/L (136-145)
[2022-06-25] MEDS: hydrALAZINE 20 MG/ML VIAL SLOW IVP PRN ×2 (04:28→09:18)
[2022-06-25] MEDS ORDERED: Lidocaine 1% (PF) 30 ML VIAL ONE (06:55)
[2022-06-25] MEDS ORDERED: CEFAZOLIN 1 GM VIAL ONE (06:55)
[2022-06-25] MEDS ORDERED: Gentamicin 80 MG/2 ML VIAL ONE (06:55)
[2022-06-25] MEDS ORDERED: CEFAZOLIN 2 GM VIAL ONE (06:55)
[2022-06-25] MEDS: Ipratropium/Albuterol 3 ML NEB NEB SCH ×3 (07:05→19:02)
[2022-06-25] MEDS ORDERED: Morphine 4 MG/ML VIAL SLOW IVP PRN (07:25)
[2022-06-25] MEDS ORDERED: Morphine 2 MG/ML VIAL SLOW IVP PRN (07:25)
[2022-06-25] MEDS ORDERED: FENTANYL 50 MCG/ML 1 ML VIAL ONE (07:35)
[2022-06-25] MEDS ORDERED: Midazolam HCl 2 mg/2 ml Vial ONE (07:35)
[2022-06-25] MEDS: Amlodipine 10 MG TAB PO SCH (09:20)
[2022-06-25] MEDS: Ezetimibe 10 MG TAB PO SCH (09:21)
[2022-06-25] MEDS: Famotidine 20 MG TAB PO SCH (09:21)
[2022-06-25] MEDS: Atenolol 50 MG TAB PO SCH (09:21)
[2022-06-25] MEDS: hydrALAZINE 25 MG TAB PO SCH ×3 (09:21→20:30)
[2022-06-25] MEDS: Tamsulosin HCl 0.4 MG CAP PO SCH (09:21)
[2022-06-25] MEDS: Fenofibrate Nanocrystallized 145 MG TAB PO SCH (09:29)
[2022-06-25] MEDS: Polyethylene Glycol 3350 17 GM Packet PO SCH (10:13)
[2022-06-25] MEDS: Sodium Chloride 0.9% 500 ML IV SCH ×2 (10:13→12:03)
[2022-06-25] MEDS: Sodium Chloride 0.9% 1,000 ML IV SCH ×3 (10:13→17:57)
[2022-06-25] MEDS: Senokot S 8.6-50 MG TAB PO SCH ×2 (10:14→20:29)
[2022-06-25] MEDS: Insulin Regular 300 UNITS/3 ML VIAL SC PRN ×2 (11:31→17:57)
[2022-06-25] MEDS ORDERED: Insulin Glargine 30 UNITS/0.3 ML VIAL SC SCH (12:30)
[2022-06-25] MEDS ORDERED: Ramipril 5 MG CAP PO SCH (22:00)
[2022-06-26] MEDS: Sodium Chloride 0.9% 1,000 ML IV SCH ×2 (03:25→12:24)
[2022-06-26] MEDS: Insulin Regular 300 UNITS/3 ML VIAL SC PRN ×4 (04:00→17:08)
[2022-06-26 04:54] LABS: #Basophils 0.1 thou/uL (0.0-0.2); #Eosinphils 0.1 thou/uL (0.0-0.7); #Lymphocytes 2.6 thou/uL (1.20-3.40); #Monocytes 1.4 thou/uL (0.11-0.59); #Neutrophils 9.4 thou/uL (1.40-6.50); %Basophils 0.4 % (0.0-1.0); %Eosinophils 0.6 % (0.0-10.0); %Lymphocytes 19.3 % (21.0-51.0); %Monocytes 10.5 % (0.0-10.0); %Neutrophils 69.2 % (42.0-75.0); Hemoglobin 13.4 g/dL (14.0-18.0); Mean Corpuscular HGB CONC 33.2 g/dL (32.0-36.0); Mean Corpuscular Hemoglobin 32.1 pg (27.0-31.0); Mean Corpuscular Volume 96.7 fl (78.0-98.0); Mean Platelet Volume 9.8 fL (7.4-10.4); Platelet Count 242 10x3/uL (130-400); RBC Distribution Width 11.1 % (11.5-14.5); Red Blood Cell (RBC) Count 4.17 mill/uL (4.70-6.10); White Blood Cell (WBC) Count 13.5 10x3/uL (4.8-10.8)
[2022-06-26 06:28] LABS: Anion Gap 11 mmol/L (10-20); BUN (Urea Nitrogen) 38 mg/dL (8.4-25.7); Calc. Creatinine Clearance 39 mL/min (70-130); Calcium 7.8 mg/dL (7.8-10.44); Carbon Dioxide 21 mmol/L (23-31); Chloride 105 mmol/L (98-107); Estimated GFR 26; Glucose 236 mg/dL (80-115); Magnesium 2.1 mg/dL (1.6-2.6); Phosphorus 2.7 mg/dL (2.3-4.7); Potassium 4.2 mmol/L (3.5-5.1); Sodium 133 mmol/L (136-145)
[2022-06-26] MEDS: Ipratropium/Albuterol 3 ML NEB NEB SCH ×3 (07:00→18:48)
[2022-06-26] MEDS ORDERED: Acetaminophen/Codeine 30-300mg Tablet PO PRN (07:29)
[2022-06-26] MEDS ORDERED: Insulin Regular 300 UNITS/3 ML VIAL SC PRN (07:30)
[2022-06-26] MEDS ORDERED: PHOS-NAK 1 PKT PACK PO SCH (08:00)
[2022-06-26] MEDS ORDERED: Acetaminophen 325 MG TAB PO PRN (08:03)
[2022-06-26] MEDS: Polyethylene Glycol 3350 17 GM Packet PO SCH (08:58)
[2022-06-26] MEDS: Atenolol 50 MG TAB PO SCH (08:59)
[2022-06-26] MEDS: Famotidine 20 MG TAB PO SCH (08:59)
[2022-06-26] MEDS: Amlodipine 10 MG TAB PO SCH (08:59)
[2022-06-26] MEDS: Senokot S 8.6-50 MG TAB PO SCH ×2 (09:00→20:19)
[2022-06-26] MEDS: Ezetimibe 10 MG TAB PO SCH (09:01)
[2022-06-26] MEDS: hydrALAZINE 25 MG TAB PO SCH ×3 (09:01→20:20)
[2022-06-26] MEDS: Insulin Glargine 30 UNITS/0.3 ML VIAL SC SCH (09:02)
[2022-06-26] MEDS: Tamsulosin HCl 0.4 MG CAP PO SCH (09:02)
[2022-06-26] MEDS: Fenofibrate Nanocrystallized 145 MG TAB PO SCH (09:06)
[2022-06-26] MEDS: Ramipril 5 MG CAP PO SCH ×2 (09:06→20:19)
[2022-06-26] MEDS: hydrALAZINE 20 MG/ML VIAL SLOW IVP PRN (10:56)
[2022-06-27] MEDS: Sodium Chloride 0.9% 1,000 ML IV SCH (00:09)
[2022-06-27] MEDS: hydrALAZINE 20 MG/ML VIAL SLOW IVP PRN (03:49)
[2022-06-27] MEDS ORDERED: Metoprolol Tartrate 5 MG/5 ML VIAL IVP SCH (04:30)
[2022-06-27] MEDS ORDERED: Labetalol HCl 100 MG/20 ML VIAL SLOW IVP SCH (04:45)
[2022-06-27] MEDS: Insulin Regular 300 UNITS/3 ML VIAL SC PRN ×2 (06:22→12:06)
[2022-06-27 06:32] LABS: #Basophils 0.1 thou/uL (0.0-0.2); #Eosinphils 0.2 thou/uL (0.0-0.7); #Lymphocytes 2.4 thou/uL (1.20-3.40); #Monocytes 1.1 thou/uL (0.11-0.59); #Neutrophils 5.9 thou/uL (1.40-6.50); %Basophils 0.6 % (0.0-1.0); %Eosinophils 1.7 % (0.0-10.0); %Lymphocytes 24.8 % (21.0-51.0); %Monocytes 11.6 % (0.0-10.0); %Neutrophils 61.3 % (42.0-75.0); Hemoglobin 13.9 g/dL (14.0-18.0); Mean Corpuscular HGB CONC 34.1 g/dL (32.0-36.0); Mean Corpuscular Hemoglobin 32.8 pg (27.0-31.0); Mean Corpuscular Volume 96.2 fl (78.0-98.0); Mean Platelet Volume 9.9 fL (7.4-10.4); Platelet Count 217 10x3/uL (130-400); RBC Distribution Width 11.4 % (11.5-14.5); Red Blood Cell (RBC) Count 4.23 mill/uL (4.70-6.10); White Blood Cell (WBC) Count 9.7 10x3/uL (4.8-10.8)
[2022-06-27] MEDS: Ipratropium/Albuterol 3 ML NEB NEB SCH ×2 (06:46→14:49)
[2022-06-27 06:55] LABS: Anion Gap 12 mmol/L (10-20); BUN (Urea Nitrogen) 33 mg/dL (8.4-25.7); Calc. Creatinine Clearance 57 mL/min (70-130); Calcium 7.7 mg/dL (7.8-10.44); Carbon Dioxide 16 mmol/L (23-31); Chloride 111 mmol/L (98-107); Estimated GFR 40; Glucose 169 mg/dL (80-115); Magnesium 2.2 mg/dL (1.6-2.6); Phosphorus 2.5 mg/dL (2.3-4.7); Potassium 4.1 mmol/L (3.5-5.1); Sodium 135 mmol/L (136-145)
[2022-06-27 07:44] VITALS: TEMP 98.1
[2022-06-27] MEDS: Fenofibrate Nanocrystallized 145 MG TAB PO SCH (08:30)
[2022-06-27] MEDS: Tamsulosin HCl 0.4 MG CAP PO SCH (08:30)
[2022-06-27] MEDS: Ramipril 5 MG CAP PO SCH (08:31)
[2022-06-27] MEDS: Atenolol 50 MG TAB PO SCH (08:31)
[2022-06-27] MEDS: Ezetimibe 10 MG TAB PO SCH (08:31)
[2022-06-27] MEDS: Famotidine 20 MG TAB PO SCH (08:31)
[2022-06-27] MEDS: Amlodipine 10 MG TAB PO SCH (08:31)
[2022-06-27] MEDS: Polyethylene Glycol 3350 17 GM Packet PO SCH (08:32)
[2022-06-27] MEDS: Senokot S 8.6-50 MG TAB PO SCH (08:32)
[2022-06-27] MEDS: hydrALAZINE 25 MG TAB PO SCH ×2 (08:35→12:05)
[2022-06-27] MEDS: Insulin Glargine 30 UNITS/0.3 ML VIAL SC SCH (08:37)
[2022-06-27 15:19] VITALS: BP 158/89
== END 2022-06-27 16:00 | disposition home or self-care (01) | DRG 242 ==
LOC: ERS 14:19 → CCU 16:04 → SURG A 06-26 10:27
PROVIDERS: ADMIT Surgery; ATTEND Surgery
PROC: 0JH606Z Insertion of Pacemaker, Dual Chamber into Chest Subcutaneous Tissue and Fascia, Open Approach (ICD-10-PCS; principal; 2022-06-25)
PROC: 02H60JZ Insertion of Pacemaker Lead into Right Atrium, Open Approach (ICD-10-PCS; 2022-06-25)
PROC: 02HL0JZ Insertion of Pacemaker Lead into Left Ventricle, Open Approach (ICD-10-PCS; 2022-06-25)
DX: I49.5 Sick sinus syndrome (principal); S06.5XAA Traumatic subdural hemorrhage with loss of consciousness status unknown, initial encounter; I44.2 Atrioventricular block, complete; N17.9 Acute kidney failure, unspecified; I16.1 Hypertensive emergency; Z20.822 Contact with and (suspected) exposure to COVID-19; N40.0 Benign prostatic hyperplasia without lower urinary tract symptoms; F17.210 Nicotine dependence, cigarettes, uncomplicated; E78.5 Hyperlipidemia, unspecified; E11.51 Type 2 diabetes mellitus with diabetic peripheral angiopathy without gangrene; E11.22 Type 2 diabetes mellitus with diabetic chronic kidney disease; N18.9 Chronic kidney disease, unspecified; I65.23 Occlusion and stenosis of bilateral carotid arteries; R33.9 Retention of urine, unspecified; W19.XXXA Unspecified fall, initial encounter; Z88.8 Allergy status to other drugs, medicaments and biological substances; Z79.82 Long term (current) use of aspirin; Z79.899 Other long term (current) drug therapy; Z79.4 Long term (current) use of insulin
CPT/HCPCS: 33208; 36415; 36416; 70450; 70496; 70498; 71045; 80048; 80053; 81003; 81015; 82550; 83690; 83735; 84100; 84484; 85025; 85610; 85730; 93005; 93010; 93306; 99152; 99153; G0390; J0360; J0461; J0690; J1265; J1580; J1815; J2001; J2250; J2270; J2405; J3010; J7030; J7042; J7050; J7620; J7999; Q9967; S0028; U0002

== ENCOUNTER 2022-09-22 10:17 | Inpatient (IN) | payer MEDICARE ==
[~2022-09-22 10:17] MED LIST changes: -Iopamidol-370 76% 500 ML 1 ML ONE; +Iopamidol-370 76% 500 ML MDV (1 ML CHARGE) ONE
[2022-09-22 11:15] LABS: #Basophils 0.1 thou/uL (0.0-0.2); #Eosinphils 0.5 thou/uL (0.0-0.7); #Lymphocytes 3.7 thou/uL (1.20-3.40); #Monocytes 0.9 thou/uL (0.11-0.59); #Neutrophils 5.9 thou/uL (1.40-6.50); %Basophils 0.6 % (0.0-1.0); %Eosinophils 4.3 % (0.0-10.0); %Lymphocytes 33.6 % (21.0-51.0); %Monocytes 7.9 % (0.0-10.0); %Neutrophils 53.6 % (42.0-75.0); Mean Corpuscular HGB CONC 32.7 g/dL (32.0-36.0); Mean Corpuscular Hemoglobin 31.1 pg (27.0-31.0); Mean Corpuscular Volume 95.1 fl (78.0-98.0); Mean Platelet Volume 8.6 fL (7.4-10.4); Platelet Count 314 10x3/uL (130-400); RBC Distribution Width 11.8 % (11.5-14.5); Red Blood Cell (RBC) Count 5.13 mill/uL (4.70-6.10)
[2022-09-22 11:29] LABS: INR-International Normal Ratio 0.9; PTT 27.6 sec (22.9-36.1); Prothrombin Time 12.1 sec (12.0-14.7)
[2022-09-22 11:35] LABS: ALT (SGPT) 18 U/L (8-55); AST (SGOT) 23 U/L (5-34); Albumin 3.1 g/dL (3.4-4.8); Alkaline Phosphatase 51 U/L (40-110); Anion Gap 13 mmol/L (10-20); BUN (Urea Nitrogen) 19 mg/dL (8.4-25.7); Bilirubin, Total 0.3 mg/dL (0.2-1.2); Calc. Creatinine Clearance 0 mL/min (70-130); Calcium 8.8 mg/dL (7.8-10.44); Carbon Dioxide 24 mmol/L (23-31); Chloride 107 mmol/L (98-107); Estimated GFR 44; Globulin 2.5 g/dL (2.4-3.5); Glucose 164 mg/dL (80-115); Potassium 4.7 mmol/L (3.5-5.1); Protein, Total 5.6 g/dL (5.8-8.1); Sodium 139 mmol/L (136-145)
[2022-09-22] MEDS ORDERED: Acetaminophen 650 MG Suppository PR PRN (14:32)
[2022-09-22] MEDS ORDERED: HYDROcodone/Acetaminophen 5/325 mg Tablet PO PRN (14:32)
[2022-09-22] MEDS ORDERED: Dextrose 50% Abboject 50 ML SYRINGE SLOW IVP PRN (14:40)
[2022-09-22] MEDS ORDERED: Dextrose 5% in Water 1,000 ML IV PRN (14:40)
[2022-09-22] MEDS ORDERED: Aspirin Chewable 81 MG TAB ONE (14:45)
[2022-09-22] MEDS ORDERED: hydrALAZINE 20 MG/ML VIAL SLOW IVP PRN (14:45)
[2022-09-22 15:30] LABS: Hemoglobin A1c 6.5 % (4.0-6.0)
[2022-09-22 16:43] VITALS: BMI 29.7
[2022-09-22] MEDS: Tamsulosin HCl 0.4 MG CAP PO SCH (21:45)
[2022-09-22] MEDS: Heparin 5,000 UNITS/ML VIAL SC SCH (21:52)
[2022-09-22 22:20] LABS: Amphetamine Not Detected (NotDetected); Barbiturates Screen Not Detected (NotDetected); Benzodiazepine Screen Not Detected (NotDetected); Cocaine Metabolite Screen Not Detected (NotDetected); Methadone Not Detected (NotDetected); Methamphetamine Not Detected (NotDetected); Opiate Screen Not Detected (NotDetected); Oxycodone Screen Not Detected (NotDetected); Phencyclidine (PCP) Not Detected (NotDetected); THC/Cannabinoid Screen Not Detected (NotDetected); Tricyclic Screen Not Detected (NotDetected)
[2022-09-23 05:30] LABS: #Basophils 0.1 thou/uL (0.0-0.2); #Eosinphils 0.4 thou/uL (0.0-0.7); #Lymphocytes 3.5 thou/uL (1.20-3.40); #Monocytes 0.8 thou/uL (0.11-0.59); #Neutrophils 3.4 thou/uL (1.40-6.50); %Eosinophils 4.8 % (0.0-10.0); %Lymphocytes 43.4 % (21.0-51.0); %Monocytes 9.6 % (0.0-10.0); %Neutrophils 41.2 % (42.0-75.0); Hemoglobin 14.2 g/dL (14.0-18.0); Mean Corpuscular HGB CONC 33.8 g/dL (32.0-36.0); Mean Corpuscular Hemoglobin 32.3 pg (27.0-31.0); Mean Corpuscular Volume 95.7 fl (78.0-98.0); Mean Platelet Volume 9.1 fL (7.4-10.4); Platelet Count 263 10x3/uL (130-400); RBC Distribution Width 11.8 % (11.5-14.5); White Blood Cell (WBC) Count 8.2 10x3/uL (4.8-10.8)
[2022-09-23 05:43] LABS: INR-International Normal Ratio 0.9; PTT 28.5 sec (22.9-36.1); Prothrombin Time 12.8 sec (12.0-14.7)
[2022-09-23 05:56] LABS: ALT (SGPT) 14 U/L (8-55); AST (SGOT) 19 U/L (5-34); Albumin 2.5 g/dL (3.4-4.8); Alkaline Phosphatase 41 U/L (40-110); Anion Gap 9 mmol/L (10-20); BUN (Urea Nitrogen) 18 mg/dL (8.4-25.7); Bilirubin, Total 0.3 mg/dL (0.2-1.2); Calc. Creatinine Clearance 53 mL/min (70-130); Calcium 8.3 mg/dL (7.8-10.44); Carbon Dioxide 23 mmol/L (23-31); Cardiac Risk 5.7 (Less than 4.5); Chloride 108 mmol/L (98-107); Cholesterol 198 mg/dl (< 200 Desired); Estimated GFR 42; Globulin 2.3 g/dL (2.4-3.5); Glucose 137 mg/dL (80-115); HDL Cholesterol 35 mg/dL (>60 Neg Risk); LDL Cholesterol, Calculated 126 mg/dL; Potassium 3.9 mmol/L (3.5-5.1); Protein, Total 4.8 g/dL (5.8-8.1); Sodium 136 mmol/L (136-145); Triglycerides 185 mg/dL (Less than 150)
[2022-09-23] MEDS: Aspirin 81 mg Enteric Coated Tablet PO SCH (08:18)
[2022-09-23] MEDS: Ezetimibe 10 MG TAB PO SCH (08:18)
[2022-09-23] MEDS: Fenofibrate Nanocrystallized 145 MG TAB PO SCH (08:18)
[2022-09-23] MEDS: Heparin 5,000 UNITS/ML VIAL SC SCH ×3 (08:18→20:17)
[2022-09-23] MEDS: HumaLOG 300 UNITS/3 ML VIAL SC PRN ×3 (13:52→23:43)
[2022-09-23] MEDS ORDERED: Clopidogrel Bisulfate 75 MG TAB PO SCH (16:40)
[2022-09-23] MEDS: Tamsulosin HCl 0.4 MG CAP PO SCH (20:21)
[2022-09-24 05:33] LABS: #Basophils 0.1 thou/uL (0.0-0.2); #Eosinphils 0.4 thou/uL (0.0-0.7); #Lymphocytes 3.3 thou/uL (1.20-3.40); #Monocytes 0.7 thou/uL (0.11-0.59); #Neutrophils 3.9 thou/uL (1.40-6.50); %Basophils 1.3 % (0.0-1.0); %Eosinophils 4.3 % (0.0-10.0); %Monocytes 8.4 % (0.0-10.0); Hemoglobin 14.4 g/dL (14.0-18.0); Mean Corpuscular HGB CONC 35.4 g/dL (32.0-36.0); Mean Corpuscular Hemoglobin 33.3 pg (27.0-31.0); Platelet Count 255 10x3/uL (130-400); RBC Distribution Width 11.6 % (11.5-14.5); Red Blood Cell (RBC) Count 4.32 mill/uL (4.70-6.10); White Blood Cell (WBC) Count 8.3 10x3/uL (4.8-10.8)
[2022-09-24 05:52] LABS: Anion Gap 12 mmol/L (10-20); BUN (Urea Nitrogen) 21 mg/dL (8.4-25.7); Calc. Creatinine Clearance 51 mL/min (70-130); Calcium 8.6 mg/dL (7.8-10.44); Carbon Dioxide 21 mmol/L (23-31); Chloride 106 mmol/L (98-107); Estimated GFR 40; Glucose 248 mg/dL (80-115); Potassium 4.2 mmol/L (3.5-5.1); Sodium 135 mmol/L (136-145)
[2022-09-24] MEDS: HumaLOG 300 UNITS/3 ML VIAL SC PRN ×2 (06:13→12:19)
[2022-09-24] MEDS: Heparin 5,000 UNITS/ML VIAL SC SCH ×2 (08:57→15:16)
[2022-09-24] MEDS: Fenofibrate Nanocrystallized 145 MG TAB PO SCH (08:58)
[2022-09-24] MEDS ORDERED: Clopidogrel Bisulfate 75 MG TAB PO SCH (09:00)
[2022-09-24] MEDS: Aspirin 81 mg Enteric Coated Tablet PO SCH (09:00)
[2022-09-24] MEDS: Ezetimibe 10 MG TAB PO SCH (09:00)
[2022-09-24 11:40] VITALS: BP 173/73; TEMP 98
[2022-09-24] MEDS ORDERED: Atenolol 50 MG TAB PO SCH (12:15)
[2022-09-24] MEDS ORDERED: Amlodipine 10 MG TAB PO SCH (12:15)
[2022-09-25] MEDS ORDERED: Amlodipine 10 MG TAB PO SCH (09:00)
[2022-09-25] MEDS ORDERED: Atenolol 50 MG TAB PO SCH (09:00)
== END 2022-09-24 15:05 | disposition home health service (06) | DRG 66 ==
LOC: SUATTDRO 10:17 → ERS 10:17 → NEURO 14:09
PROVIDERS: ADMIT Internal Medicine; ATTEND Internal Medicine
DX: I63.9 Cerebral infarction, unspecified (principal); R29.704 NIHSS score 4; H02.403 Unspecified ptosis of bilateral eyelids; E11.51 Type 2 diabetes mellitus with diabetic peripheral angiopathy without gangrene; E78.5 Hyperlipidemia, unspecified; F17.210 Nicotine dependence, cigarettes, uncomplicated; N18.9 Chronic kidney disease, unspecified; I12.9 Hypertensive chronic kidney disease with stage 1 through stage 4 chronic kidney disease, or unspecified chronic kidney disease; E11.22 Type 2 diabetes mellitus with diabetic chronic kidney disease; I65.22 Occlusion and stenosis of left carotid artery; I49.5 Sick sinus syndrome; N40.0 Benign prostatic hyperplasia without lower urinary tract symptoms; Z88.8 Allergy status to other drugs, medicaments and biological substances; Z79.4 Long term (current) use of insulin; Z79.899 Other long term (current) drug therapy; Z79.82 Long term (current) use of aspirin; Z95.0 Presence of cardiac pacemaker
CPT/HCPCS: 36415; 36416; 70496; 70498; 70544; 70551; 80048; 80053; 80061; 80306; 83036; 84443; 84484; 85025; 85610; 85730; 93005; J1644; J1815; Q9967

== ENCOUNTER 2022-10-11 16:27 | Observation (INO) | payer MEDICARE ==
[2022-10-11 19:16] VITALS: BMI 27.7
[2022-10-11] MEDS ORDERED: hydrALAZINE 20 MG/ML VIAL SLOW IVP PRN (19:33)
[2022-10-11] MEDS ORDERED: Acetaminophen 325 MG TAB PO PRN (19:33)
[2022-10-11] MEDS ORDERED: Ondansetron PF 4 MG/2 ML Vial IVP PRN (19:33)
[2022-10-11] MEDS ORDERED: Ondansetron ODT 4 MG TAB PO PRN (19:33)
[2022-10-11] MEDS ORDERED: Dextrose 5% in Water 1,000 ML IV PRN (19:40)
[2022-10-11] MEDS ORDERED: Dextrose 50% Abboject 50 ML SYRINGE SLOW IVP PRN (19:40)
[2022-10-11] MEDS ORDERED: HumaLOG 300 UNITS/3 ML VIAL SC PRN (19:40)
[2022-10-11] MEDS ORDERED: Dextrose 5 % And 0.9 % NaCl 1,000 ML IV SCH ×2 (19:45→20:13)
[2022-10-12 05:02] LABS: #Basophils 0.1 thou/uL (0.0-0.2); #Eosinphils 0.3 thou/uL (0.0-0.7); #Lymphocytes 3.2 thou/uL (1.20-3.40); #Monocytes 0.7 thou/uL (0.11-0.59); #Neutrophils 2.9 thou/uL (1.40-6.50); %Eosinophils 4.5 % (0.0-10.0); %Lymphocytes 44.2 % (21.0-51.0); %Neutrophils 40.4 % (42.0-75.0); Hemoglobin 14.8 g/dL (14.0-18.0); Mean Corpuscular HGB CONC 35.5 g/dL (32.0-36.0); Mean Corpuscular Hemoglobin 33.4 pg (27.0-31.0); Mean Corpuscular Volume 94.1 fl (78.0-98.0); Mean Platelet Volume 8.6 fL (7.4-10.4); Platelet Count 237 10x3/uL (130-400); RBC Distribution Width 11.8 % (11.5-14.5); Red Blood Cell (RBC) Count 4.44 mill/uL (4.70-6.10); White Blood Cell (WBC) Count 7.2 10x3/uL (4.8-10.8)
[2022-10-12 05:24] LABS: Anion Gap 11 mmol/L (10-20); BUN (Urea Nitrogen) 14 mg/dL (8.4-25.7); Calc. Creatinine Clearance 54 mL/min (70-130); Calcium 8.4 mg/dL (7.8-10.44); Carbon Dioxide 21 mmol/L (23-31); Chloride 111 mmol/L (98-107); Estimated GFR 46; Glucose 131 mg/dL (80-115); Potassium 3.8 mmol/L (3.5-5.1); Sodium 139 mmol/L (136-145)
[2022-10-12] MEDS: Ramipril 5 MG CAP PO SCH ×2 (09:38→20:15)
[2022-10-12] MEDS: Fenofibrate Nanocrystallized 145 MG TAB PO SCH (09:38)
[2022-10-12] MEDS: Amlodipine 10 MG TAB PO SCH (09:38)
[2022-10-12] MEDS: Aspirin 81 mg Enteric Coated Tablet PO SCH (09:38)
[2022-10-12] MEDS: Clopidogrel Bisulfate 75 MG TAB PO SCH (09:38)
[2022-10-12] MEDS: Ezetimibe 10 MG TAB PO SCH (09:38)
[2022-10-12] MEDS: hydrALAZINE 25 MG TAB PO SCH ×2 (09:38→20:17)
[2022-10-12] MEDS: HumaLOG 300 UNITS/3 ML VIAL SC PRN (19:16)
[2022-10-13] MEDS: HumaLOG 300 UNITS/3 ML VIAL SC PRN ×2 (05:31→10:46)
[2022-10-13] MEDS: Ramipril 5 MG CAP PO SCH (08:58)
[2022-10-13] MEDS: Fenofibrate Nanocrystallized 145 MG TAB PO SCH (08:59)
[2022-10-13] MEDS: hydrALAZINE 25 MG TAB PO SCH (08:59)
[2022-10-13] MEDS: Ezetimibe 10 MG TAB PO SCH (08:59)
[2022-10-13] MEDS: Clopidogrel Bisulfate 75 MG TAB PO SCH (08:59)
[2022-10-13] MEDS: Aspirin 81 mg Enteric Coated Tablet PO SCH (08:59)
[2022-10-13] MEDS: Amlodipine 10 MG TAB PO SCH (08:59)
[2022-10-13 16:02] VITALS: BP 166/74; TEMP 99.1
== END 2022-10-13 15:35 | disposition home health service (06) ==
LOC: 2SW 18:17
PROVIDERS: ADMIT Internal Medicine; ATTEND Internal Medicine
DX: R13.10 Dysphagia, unspecified (principal); E11.40 Type 2 diabetes mellitus with diabetic neuropathy, unspecified; I12.9 Hypertensive chronic kidney disease with stage 1 through stage 4 chronic kidney disease, or unspecified chronic kidney disease; E11.22 Type 2 diabetes mellitus with diabetic chronic kidney disease; N18.30 Chronic kidney disease, stage 3 unspecified; I25.10 Atherosclerotic heart disease of native coronary artery without angina pectoris; I49.5 Sick sinus syndrome; N40.0 Benign prostatic hyperplasia without lower urinary tract symptoms; E11.51 Type 2 diabetes mellitus with diabetic peripheral angiopathy without gangrene; F17.210 Nicotine dependence, cigarettes, uncomplicated; E78.5 Hyperlipidemia, unspecified; Z85.038 Personal history of other malignant neoplasm of large intestine; Z86.73 Personal history of transient ischemic attack (TIA), and cerebral infarction without residual deficits; Z79.02 Long term (current) use of antithrombotics/antiplatelets; Z79.4 Long term (current) use of insulin; Z79.82 Long term (current) use of aspirin; Z79.899 Other long term (current) drug therapy; Z88.8 Allergy status to other drugs, medicaments and biological substances; Z95.0 Presence of cardiac pacemaker
CPT/HCPCS: 70551; 74230; 80048; 82962 ×3; 83519; 85025; 97530; 97535; G0378 ×3; 36415; 36416; J1815; J7042